=== PATIENT | male | born 1990 | race Caucasian/White ===

== ENCOUNTER 2018-04-07 20:21 | Emergency (ER) | payer OTHER, SELFPAY ==
[~2018-04-07 20:21] MED LIST: ISOVUE-370 76%-LOCM 1 ML ONE
[2018-04-07] MEDS ORDERED: Morphine 4 MG/ML VIAL ONE ×2 (20:42→22:39)
[2018-04-07] MEDS ORDERED: Ondansetron ODT 4 MG TAB ONE (20:42)
[2018-04-07 21:06] LABS: #Eosinphils 0.1 thou/uL (0.0-0.7); #Lymphocytes 1.3 thou/uL (1.20-3.40); #Monocytes 0.5 thou/uL (0.11-0.59); #Neutrophils 4.7 thou/uL (1.40-6.50); %Basophils 0.6 % (0.0-1.0); %Eosinophils 1.2 % (0.0-10.0); %Lymphocytes 19.2 % (21.0-51.0); %Monocytes 7.6 % (0.0-10.0); %Neutrophils 71.3 % (42.0-75.0); Hemoglobin 14.9 g/dL (14.0-18.0); Mean Corpuscular HGB CONC 35.9 g/dL (32.0-36.0); Mean Corpuscular Hemoglobin 32.5 pg (27.0-31.0); Mean Corpuscular Volume 90.6 fL (78.0-98.0); Mean Platelet Volume 7.6 fL (7.4-10.4); Platelet Count 186 thou/uL (130-400); RBC Distribution Width 11.7 % (11.5-14.5); Red Blood Cell (RBC) Count 4.57 mill/uL (4.70-6.10); White Blood Cell (WBC) Count 6.7 thou/uL (4.8-10.8)
[2018-04-07 21:11] LABS: Prothrombin Time 13.7 SEC (12.0-14.7)
[2018-04-07 21:16] LABS: PTT 31.8 SEC (22.9-36.1)
[2018-04-07 21:25] LABS: ALT (SGPT) 19 U/L (8-55); AST (SGOT) 16 U/L (5-34); Albumin 4.3 g/dL (3.5-5.0); Alkaline Phosphatase 53 U/L (40-150); Anion Gap 11 mmol/L (10-20); BUN (Urea Nitrogen) 10 mg/dL (8.9-20.6); Bilirubin, Total 0.9 mg/dL (0.2-1.2); CK (CPK) 127 U/L (30-200); Calc. Creatinine Clearance 0 mL/min (70-130); Calcium 8.9 mg/dL (7.8-10.44); Carbon Dioxide 27 mmol/L (22-29); Chloride 108 mmol/L (98-107); Estimated GFR-MDRD Greater than 90; Globulin 2.4 g/dL (2.4-3.5); Glucose 81 mg/dL (70-105); Magnesium 2.1 mg/dL (1.6-2.6); Potassium 3.7 mmol/L (3.5-5.1); Protein, Total 6.7 g/dL (6.0-8.3); Sodium 142 mmol/L (136-145)
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
--- NOTE | 2018-04-07 21:51 | CT ---
CT OF THE CHEST WITH CONTRAST CT OF THE ABDOMEN AND PELVIS WITH CONTRAST: Indication: 27-year-old male status post fall off bull dozer 3 ft with back pain and toe tingliness. History of epilepsy. Comparison: Noncontrast CT of the abdomen and pelvis, 09-22-15. FINDINGS: No contusion, pleural effusion, or pneumothorax is evident. Heart and great vessels appear within normal limits. No definite solid organ injury is seen within the abdomen. There is a 1 cm cyst within the left kidne y which was present in 2016, with better detail on contrast enhanced examination performed today. No free fluid or free air is evident. There are a few scattered diverticula involving the colon witho ut evidence of active diverticulitis. No acute fracture or subluxation is evident. Spinal alignment of the thoracolumbar spine appears with in normal limits. There are surgical clips within the right inguinal region. IMPRESSION: 1. No acute traumatic injury is seen involving the chest, abdomen, or pelvis. 2. No acute fracture or subluxation involving the thoracic and lumbar spine. 3. Left renal cyst. 4. Colonic diverticulosis. POS: [facility]
--- NOTE | 2018-04-07 22:00 | RAD ---
PORTABLE SUPINE CHEST: History: Fall with trauma. FINDINGS: Lungs are clear. No pneumothorax or effusion. Heart and mediastinum unremarkable. The osseous structu res appear intact. IMPRESSION: No acute process identified. POS: [facility]
--- NOTE | 2018-04-07 22:36 | CT ---
CT HEAD WITHOUT CONTRAST: Technique: Multiple contiguous axial images were obtained through the head without IV enhancement. History: Headache. Fell with injury to head and neck. Comparison: 2012 FINDINGS: Ventricles have normal size and position, somewhat small. There is no evidence of mass or hemorrhage. The basilar cisterns are effaced. Sulci also appear very tight in both cerebral hemispheres. Finding s are suggestive of increased intracranial pressure although this may be normal for this patient. Fur ther evaluation with MRI is suggested. The paranasal sinuses and mastoids are aerated. The calvarium appears unremarkable. IMPRESSION: The basilar cisterns are effaced and the sulci are also tight bilaterally with very little sulcal gretel ency identified in either cerebral hemisphere. Question increased intracranial pressure. Suggest furt her evaluation with MRI. Findings discussed with Dr. Childs. POS: [facility]
[2018-04-07 22:46] LABS: Bilirubin Negative (Negative); Blood, Urine Negative (Negative); Clarity CLEAR (Clear); Glucose, Urine (Dipstick) Negative (Negative); Leukocyte Negative (Negative); Nitrite Negative (Negative); Protein, Urine (Dipstick) Negative (Neg-Trace); Specific Gravity, Urine 1.045 (1.002-1.036); Urobilinogen 0.2 mg/dL (0.2-1.0); pH, Urine 7.5 (5.0-9.0)
[2018-04-07 22:55] LABS: Amphetamine Not Detected (NotDetected); Barbiturates Screen Not Detected (NotDetected); Benzodiazepine Screen Not Detected (NotDetected); Cocaine Metabolite Screen Not Detected (NotDetected); Medtox Control Line Valid? VALID (VALID); Medtox Reader # READER 1; Methadone Not Detected (NotDetected); Methamphetamine Not Detected (NotDetected); Opiate Screen Detected (NotDetected); Oxycodone Screen Not Detected (NotDetected); Phencyclidine (PCP) Not Detected (NotDetected); THC/Cannabinoid Screen Not Detected (NotDetected); Tricyclic Screen Not Detected (NotDetected)
[2018-04-08] MEDS ORDERED: Morphine 4 MG/ML VIAL ONE (01:55)
[2018-04-08] MEDS ORDERED: Ketorolac Tromethamine 30 MG/ML VIAL ONE (03:56)
[2018-04-08] MEDS ORDERED: HYDROmorphone 0.5 MG/0.5 ML SYRINGE ONE (04:38)
[2018-04-08] MEDS ORDERED: Ondansetron ODT 4 MG TAB ONE (04:49)
--- NOTE | 2018-04-08 09:10 | MRI ---
PRELIMINARY REPORT/[facility]/EMERGENTY AFTER-HOURS PROCEDURE MR Cervical Spine Without And With Intravenous Contrast CLINICAL HISTORY: 27 years old, male; Pain and injury or trauma; Fall; Initial encounter; Sprain or strain, cervical li gaments; Neck pain; Patient HX: Headache. Fell with injury to head and neck. TECHNIQUE: Magnetic resonance images of the cervical spine without and with intravenous contrast in multiple stephanie connor. COMPARISON: No relevant prior studies available. FINDINGS: Vertebrae: Unremarkable. No acute fracture. Spinal cord: There is increased T2 signal throughout the central mason matter cord extending from appr oximately the level of C1 down to the T3 level which may be due to contusion in the setting of trauma or myelomalacia. No abnormal enhancement. Soft tissues: There is mild increased T2 signal and enhancement throughout the soft tissues posterior to the spine, most prominently at the C5-T1 levels. No focal fluid collection Vasculature: Unremarkable. Normal vertebral artery flow voids are visualized. DISCS/SPINAL CANAL/NEURAL FORAMINA: C2-C3: Unremarkable. No significant disc disease. No stenosis. C3-C4: Unremarkable. No significant disc disease. No stenosis. C4-C5: Unremarkable. No significant disc disease. No stenosis. C5-C6: Unremarkable. No significant disc disease. No stenosis. C6-C7: Unremarkable. No significant disc disease. No stenosis. C7-T1: Unremarkable. No significant disc disease. No stenosis. IMPRESSION: Soft tissue edema posterior to the spine suspicious for ligamentous injury. Edema throughout the spinal cord, predominantly in the mason matter, from C1-T3 suspicious for myeloma lacia or contusion in the setting of trauma. Thank you for allowing us to participate in the care of your patient. Dictated and Authenticated by: Amor Grullon MD 04/08/2018 5:22 AM Central Time ([place] & [place]) FINAL REPORT MRI CERVICAL SPINE WITH AND WITHOUT CONTRAST: HISTORY: Trauma. Fall. COMPARISON: Cervical spine CT same day. FINDINGS: There is long-segment edema throughout the cervical cord from the odontoid process to the level of th e upper thoracic spine. There appears to be mild expansion of the cord. There is a long segment foc al area of T2 hyperintensity involving the entire transverse component of the cord. The paraspinal musculature is normal. Paraspinal soft tissues are normal. There is no focal abnorma l area of enhancement. IMPRESSION: Long-segment cervical and upper thoracic spinal cord enlargement with abnormal fluid signal throughou t the cord. Findings are most suspicious for a transverse myelitis versus acute disseminated encepha lomyelitis. Contusion is a possibility. There is also a small syrinx of the upper cervical cord. A malignant process such as astrocytoma is also within the differential. Cord edema from patient's Chi ara-I malformation is felt less likely. Neurology follow up recommended. POS: [facility]
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
--- NOTE | 2018-04-08 09:51 | MRI ---
PRELIMINARY REPORT/[facility]/EMERGENTY AFTER-HOURS PROCEDURE MR Lumbar Spine Without And With Intravenous Contrast CLINICAL HISTORY: 27 years old, male; Injury or trauma; Fall; Initial encounter; Sprain or strain, lumbar ligaments TECHNIQUE: Magnetic resonance images of the lumbar spine without and with intravenous contrast in multiple plane s. COMPARISON: No relevant prior studies available. FINDINGS: Vertebrae: Unremarkable. No acute fracture. Spinal cord: Unremarkable. Normal signal. No abnormal enhancement. Soft tissues: Unremarkable. DISCS/SPINAL CANAL/NEURAL FORAMINA: L1-L2: Unremarkable. No significant disc disease. No stenosis. L2-L3: Unremarkable. No significant disc disease. No stenosis. L3-L4: Unremarkable. No significant disc disease. No stenosis. L4-L5: Unremarkable. No significant disc disease. No stenosis. L5-S1: Unremarkable. No significant disc disease. No stenosis. IMPRESSION: Normal lumbar spine MRI. Thank you for allowing us to participate in the care of your patient. Dictated and Authenticated by: Amor Grullon MD 04/08/2018 5:34 AM Central Time ([place] & [place]) MR LUMBAR SPINE WITH AND WITHOUT CONTRAST: History: Fall, pain. Comparison: CT same day. FINDINGS: The findings and impression are concordant with the preliminary report. Code QA. POS: [facility]
--- NOTE | 2018-04-08 09:53 | MRI ---
PRELIMINARY REPORT/[facility]/EMERGENTY AFTER-HOURS PROCEDURE MR Thoracic Spine Without And With Intravenous Contrast CLINICAL HISTORY: 27 years old, male; Injury or trauma; Fall; Initial encounter; Sprain or strain TECHNIQUE: Magnetic resonance images of the thoracic spine without and with intravenous contrast in multiple stephanie connor. COMPARISON: No relevant prior studies available. FINDINGS: Vertebrae: Unremarkable. No acute fracture. Discs/spinal canal/neural foramina: No spinal canal stenosis. Spinal cord: Again seen is increased T2 signal within the mason matter from C1-T3. Soft tissues: Unremarkable. IMPRESSION: Myelomalacia or contusion in the cervical and upper thoracic cord as described in the C-spine MRI rep ort. Thank you for allowing us to participate in the care of your patient. Dictated and Authenticated by: Amor Grullon MD 04/08/2018 5:27 AM Central Time ([place] & [place]) MRI THORACIC SPINE WITH AND WITHOUT CONTRAST: History: Trauma, pain. Comparison: CT 04-08-18 FINDINGS: There is multi thoracic cord edema from the level of T1 to T3. There is enlargement. The cord edema i nvolves the entire cord without significant abnormal enhancement. Paraspinal musculature is normal. IMPRESSION: Findings and impression concur with preliminary report. Abnormally engorged edematous upper thoracic cord from T1-3. Differential is unchanged from cervical spine MRI. POS: [facility]
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
== END 2018-04-08 07:35 | disposition home or self-care (01) ==
LOC: ERS 20:21
DX: S20.229A Contusion of unspecified back wall of thorax, initial encounter (principal); S24.109A Unspecified injury at unspecified level of thoracic spinal cord, initial encounter; S14.109A Unspecified injury at unspecified level of cervical spinal cord, initial encounter; F17.210 Nicotine dependence, cigarettes, uncomplicated
CPT/HCPCS: 70450; 70553; 71045; 71260; 72125; 72156; 72157; 72158; 74177; 80053; 80306; 81003; 82550; 83735; 85025; 85610; 85730; 96361; 96374; 96375; 96376; G0390; J1170; J1885; J2270; Q0162

== ENCOUNTER 2018-05-25 18:27 | Emergency (ER) | payer SELFPAY | END 2018-05-25 19:02 | disposition left against medical advice (07) | LOC: ERS 18:27 | DX: Z53.21 Procedure and treatment not carried out due to patient leaving prior to being seen by health care provider (principal) ==

== ENCOUNTER 2019-05-04 11:59 | Inpatient (IN) | payer SELFPAY ==
[2019-05-04 12:36] LABS: #Eosinphils 0.1 thou/uL (0.0-0.7); #Lymphocytes 1.2 thou/uL (1.20-3.40); #Monocytes 0.4 thou/uL (0.11-0.59); #Neutrophils 3.4 thou/uL (1.40-6.50); %Basophils 0.8 % (0.0-1.0); %Eosinophils 1.6 % (0.0-10.0); %Lymphocytes 22.9 % (21.0-51.0); %Monocytes 7.4 % (0.0-10.0); %Neutrophils 67.3 % (42.0-75.0); Hemoglobin 15.3 g/dL (14.0-18.0); Mean Corpuscular HGB CONC 33.2 g/dL (32.0-36.0); Mean Corpuscular Hemoglobin 30.7 pg (27.0-31.0); Mean Corpuscular Volume 92.4 fL (78.0-98.0); Mean Platelet Volume 7.8 fL (7.4-10.4); Platelet Count 237 thou/uL (130-400); RBC Distribution Width 11.7 % (11.5-14.5); Red Blood Cell (RBC) Count 4.98 mill/uL (4.70-6.10); White Blood Cell (WBC) Count 5.1 thou/uL (4.8-10.8)
[2019-05-04 12:59] LABS: ALT (SGPT) 17 U/L (8-55); AST (SGOT) 10 U/L (5-34); Albumin 4.5 g/dL (3.5-5.0); Alkaline Phosphatase 65 U/L (40-150); Anion Gap 14 mmol/L (10-20); BUN (Urea Nitrogen) 18 mg/dL (8.9-20.6); Bilirubin, Total 0.3 mg/dL (0.2-1.2); Calc. Creatinine Clearance 0 mL/min (70-130); Calcium 9.3 mg/dL (7.8-10.44); Carbon Dioxide 22 mmol/L (22-29); Chloride 106 mmol/L (98-107); Estimated GFR-MDRD Greater than 90; Globulin 2.5 g/dL (2.4-3.5); Glucose 104 mg/dL (70-105); Potassium 4.2 mmol/L (3.5-5.1); Sodium 138 mmol/L (136-145)
[2019-05-04] MEDS ORDERED: Acetaminophen 500 MG TAB ONE (13:46)
[2019-05-04] MEDS ORDERED: diphenhydrAMINE 50 MG/ML VIAL ONE (13:46)
[2019-05-04] MEDS ORDERED: Metoclopramide HCl 10 MG/2 ML VIAL ONE (13:46)
[2019-05-04] MEDS ORDERED: Ondansetron PF 4 MG/2 ML Vial ONE (13:52)
[2019-05-04] MEDS ORDERED: Magnesium 2 GM/50 ML BAG (IN WATER) ONE (14:58)
[2019-05-04] MEDS ORDERED: methylPREDNISolone Sod Succ/PF 125 MG/2 ML VIAL ONE (14:58)
--- NOTE | 2019-05-04 15:07 | CT ---
CT HEAD WITHOUT CONTRAST: CTA HEAD WITH IV CONTRAST AND 3D POST PROCESSING: CTA NECK WITH IV CONTRAST AND 3D POST PROCESSING: HISTORY: Sudden onset headache associated with dizziness. The patient had Chiari I malformation decompression surgery on 02/18/2019. FINDINGS: No evidence of infarct, hemorrhage, midline shift, or abnormal extraaxial fluid collections is seen. The ventricular size is normal, and the basilar cisterns are patent. There are postop changes of a craniectomy. There is good flow in the vertebrobasilar and carotid artery systems on both sides, in the neck and h ead, without evidence of major branch occlusion, high-grade stenosis, or aneurysm formation. The visualized paranasal sinuses and mastoid air cells are well aerated. IMPRESSION: No CT evidence of acute intracranial process or significant abnormality in the vertebrobasilar or car otid artery systems. POS: [facility]
[2019-05-04] MEDS ORDERED: Ketamine 50 MG/ML (10ML VIAL) ONE (16:11)
[2019-05-04] MEDS ORDERED: VALPROATE SODIUM IVPB SCH (16:15)
[2019-05-04] MEDS ORDERED: SODIUM CHLORIDE 0.9% IVPB SCH (16:15)
[2019-05-04 16:52] LABS: Color Of CSF Supernatant COLORLESS (Colorless); Tube # 2; Unspun CSF Color COLORLESS (Colorless)
[2019-05-04 17:05] LABS: CSF, Glucose 64 mg/dl (40-70); CSF, Protein 72 mg/dL (15-40)
[2019-05-04 17:18] LABS: CSF Source CSF; Tube # 2
[2019-05-04 17:19] LABS: Clarity Clear (Clear); RBC Count - Manual 261 /cumm (None Seen); WBC/NonHematics Count - Manual 3 /cumm (0-5)
[2019-05-04 17:38] LABS: CSF Source CSF; Clarity Clear (Clear); RBC Count - Manual 228 /cumm (None Seen); Tube # 4; WBC/NonHematics Count - Manual 5 /cumm (0-5)
[2019-05-04] MEDS ORDERED: Morphine 4 MG/ML VIAL ONE (18:14)
[2019-05-04] MEDS ORDERED: hydrALAZINE 20 MG/ML VIAL SLOW IVP PRN (19:44)
[2019-05-04] MEDS ORDERED: Labetalol HCl 100 MG/20 ML VIAL SLOW IVP PRN (19:44)
[2019-05-04 20:11] VITALS: BMI 27.8
[2019-05-04] MEDS: Morphine 2 MG/ML SYRINGE SLOW IVP PRN (20:46)
[2019-05-04] MEDS: HYDROcodone/Acetaminophen 5/325 mg Tablet PO PRN (21:32)
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
[2019-05-04] MEDS ORDERED: Morphine 2 MG/ML SYRINGE SLOW IVP SCH (23:15)
[2019-05-05] MEDS: Morphine 2 MG/ML SYRINGE SLOW IVP PRN ×6 (02:08→22:02)
[2019-05-05] MEDS: Ondansetron PF 4 MG/2 ML Vial IVP PRN ×3 (02:08→17:45)
[2019-05-05 05:37] LABS: Cardiac Risk 3.7 (Less than 4.5)
[2019-05-05] MEDS: HYDROcodone/Acetaminophen 5/325 mg Tablet PO PRN ×2 (08:01→19:39)
--- NOTE | 2019-05-05 11:02 | MRI ---
Exam: Brain MRI without contrast HISTORY: Stroke. COMPARISON: None FINDINGS: Calvarial marrow signal intensity: Appropriate T1 signal Gradient echo sequence: No hemorrhage Brain parenchyma: No mass, mass effect or midline shift. Brain volume, age-appropriate. Cortical mason-white matter differentiation: Preserved Restricted diffusion: Central arterial flow voids are maintained. Absent restricted diffusion White matter signal intensities: T2, FLAIR white matter hyperintensities due to chronic small vessel ischemic changes Sinuses: Adequate aeration of the paranasal sinuses and mastoid air cells. IMPRESSION: 1. Absent restricted diffusion. No acute infarct. 2. Postsurgical changes compatible with a suboccipital craniotomy. Abnormal signal intensity in the u pper cervical cord, similar to a MRI from 04/08/2018. Incomplete evaluation
[2019-05-05] MEDS: Metoclopramide HCl 10 MG/2 ML VIAL IVP SCH ×3 (11:29→21:56)
[2019-05-05] MEDS: Dihydroergotamine Mesylate 1 MG/ML AMP SLOW IVP SCH ×3 (11:47→21:55)
--- NOTE | 2019-05-05 13:05 | MRI ---
Exam: MRI CERVICAL SPINE WITHOUT CONTRAST: HISTORY: Chiari surgery. Brain surgery. Right arm and leg paresthesia.. COMPARISON: 04/08/2018. FINDINGS: Appropriate T1 marrow signal intensity of the cervical vertebra. Cervical spine vertebral body heigh t is maintained. No fracture. No significant STIR hyperintensity to suggest vertebral body edema or ligamentous injury. Postsurgical changes compatible with suboccipital craniotomy. Redemonstration of T2 hyperintensity involving the cervical cord. In the interim, there appears to be cystic change along the right aspect of the cervical cord. This cystic change spans the entire aspect of the right aspect of the cervical cord down to the C7 vertebral body level. At C7, there is cystic change involving the left and right aspect of the cord. Additional cystic change is noted in the right aspect of the thoracic vertebra, incompletely evaluated. C2-C3: Broad-based disc osteophyte complex. Mild central canal stenosis. Right neural foramen is durant nt. Mild to moderate left neural foraminal narrowing. C3-C4: Broad-based disc osteophyte complex. There is contact upon the ventral cord. Stable mild centr al canal stenosis. Moderate bilateral neural foraminal narrowing. C4-C5: Broad-based disc osteophyte complex with a right paracentral component causing mass effect and deformity of the central cord. Mild central canal stenosis. Mild bilateral neural foraminal narrowing. C5-C6: Broad-based disc osteophyte complex abuts the thecal sac. Mild central canal stenosis. Mild ri ght and moderate left foraminal narrowing due to uncovertebral hypertrophy. C6-C7: No significant central canal stenosis or significant neural foraminal narrowing. C7-T1: No significant central canal stenosis or significant neural foraminal narrowing. IMPRESSION: 1. Stable degenerative changes of the cervical spine. 2. Stable suboccipital craniotomy change. 3. Extensive T2 hyperintensities throughout the visualized cervical and thoracic cord suggesting cyst ic change. 4. Postcontrast imaging of the cervical spine as well as pre and postcontrast imaging of the thoracic spine is recommended. Findings conveyed to Sarah Cardenas via [employer] 05/05/2019 at 1:04 PM Code CR Transcribed Date/Time: 05/05/2019 1:12 PM
--- NOTE | 2019-05-05 17:29 | PDOC.HOSPP ---
- Subjective Encounter Date: 05/05/19 Encounter Time: 17:27 Subjective: Patient lying in bed, he reports headache improved with migraine cocktail today , awaiting MRI w/wo contrast cervical and thoracic spine. His numbness and tingling also improved. - Objective Vital Signs & Weight: Vital Signs (12 hours) Temp Pulse Resp BP Pulse Ox 05/05/19 07:33 98.3 F 86 20 138/79 94 L Weight Admit Weight 199 lb 11.2 oz Weight 199 lb 11.2 oz I&O: 05/04/19 05/05/19 05/06/19 06:59 06:59 06:59 Intake Total 350 Balance 350 Result Diagrams: 05/04/19 12:27 05/04/19 12:27 Radiology Reviewed by me: Yes ROS - Review of Systems Constitutional: denies: fever, chills Eyes: denies: vision change ENT: denies: ear pain, nose congestion Respiratory: denies: cough, dry, shortness of breath Cardiovascular: denies: chest pain, palpitations Gastrointestinal: reports: nausea. denies: vomitting, abdominal pain Musculoskeletal: reports: arm pain Skin: denies: rash, lesions Neurological: reports: numbness. denies: weakness, change in speech All other systems reviewed; all pertinent +/- noted in HPI/Subj - Medication Medications: Active Medications Generic Name Dose Route Start Last Admin Trade Name Freq PRN Reason Stop Dose Admin Hydrocodone Bitart/Acetaminophen 1 tab 05/04/19 19:44 05/05/19 08:01 [place] 5/325 PO 1 tab Q4H PRN Administration Moderate Pain (4-6) Dihydroergotamine Mesylate 0.5 mg 05/05/19 10:00 05/05/19 15:55 D.H.E. 45 SLOW IVP 0.5 mg Q6H HOSSEIN Administration Hydralazine HCl 10 mg 05/04/19 19:44 05/04/19 21:33 Apresoline SLOW IVP 10 mg Q4H PRN Administration SBP > 180 and HR < 70 Metoclopramide HCl 10 mg 05/05/19 10:00 05/05/19 15:55 Reglan IVP 10 mg Q6H HOSSEIN Administration Morphine Sulfate 2 mg 05/04/19 20:13 05/05/19 13:58 Morphine SLOW IVP 2 mg Q4H PRN Administration Severe Pain (7-10) Ondansetron HCl 4 mg 05/04/19 19:44 05/05/19 09:58 Zofran IVP 4 mg Q6H PRN Administration Nausea/Vomiting - Exam NAD, awake alert Eye: PERRL ENT: normocephalic atraumatic, moist mucosa Neck: supple, no JVD Heart: RRR, no murmur Respiratory: CTAB, no wheezes Gastrointestinal: soft, non-tender, normal bowel sounds Extremities: no cyanosis, no edema Skin: normal turgor, no lesions Neurological: CN's grossly intact, normal sensation to touch Musculoskeletal: normal tone, no muscle wasting Psychiatric: normal affect, A&O x 3 Hosp A/P (1) Intractable headache Code(s): R51 - HEADACHE Status: Acute (2) Migraine Code(s): G43.909 - MIGRAINE, UNSP, NOT INTRACTABLE, WITHOUT STATUS MIGRAINOSUS Status: Acute (3) Arnold-Chiari malformation, type II Code(s): Q07.01 - ARNOLD-CHIARI SYNDROME WITH SPINA BIFIDA Status: Acute - Plan old records reviewed/req Continue migraine treatment per Neurology, appreciate recommendations Await MRI w/wo contrast Continue to monitor and continue supportive care at this time
[2019-05-05] MEDS: Ketorolac Tromethamine 30 MG/ML VIAL IVP PRN (17:44)
--- NOTE | 2019-05-05 23:56 | CON ---
DATE OF CONSULTATION: 05/05/2019 CONSULTING PHYSICIAN: Neurosurgical Service. IMPRESSION: 1. Probable migraine. 2. Recent suboccipital decompression for Chiari malformation. 3. Cervical cord syrinx with residual numbness. PLAN: 1. We will continue the Deniz protocol in conjunction with Toradol to try to break the pain cycle. 2. Neurosurgical followup of the syrinx. HISTORY OF PRESENT ILLNESS: Mr. Cancino is a 29-year-old man, who is operated on by Dr. Ibrahim recently. He developed a severe frontal headache, which is throbbing and associated with nausea, vomiting, light and sound sensitivity. Never had any headaches like this in the past. He denies any suboccipital pain. He was given a dose of DHE and Reglan and has had an improvement in the pain level down to a 5/10. He was getting morphine prior to this, which was not effective. PAST MEDICAL HISTORY: As noted above. ALLERGIES: NONE. SOCIAL HISTORY: Unremarkable. FAMILY HISTORY: Unremarkable. REVIEW OF SYSTEMS: A 10-system review of systems is otherwise negative. PHYSICAL EXAMINATION: VITAL SIGNS: Stable. He is afebrile HEENT: Pupils are equal and reactive. Conjunctivae are clear. Oropharynx clear. NECK: Supple. EXTREMITIES: No cyanosis. NEUROLOGIC: He is alert and appropriate. Speech is fluent and clear. He has no focal motor deficits. Reports some diminished sensation in the right arm to touch. No abnormal movements were seen. IMAGING DATA: Lumbar puncture was unremarkable. SUMMARY: A 29-year-old man with fairly intense headache, which appears to be migrainous in origin. He has some ongoing sensory loss, which I suspect is related to the syrinx. I will be happy to follow up in his care for managing his headaches. Job ID: [id number]
[2019-05-06] MEDS: Morphine 2 MG/ML SYRINGE SLOW IVP PRN ×5 (04:32→23:13)
[2019-05-06] MEDS: Metoclopramide HCl 10 MG/2 ML VIAL IVP SCH (04:33)
[2019-05-06] MEDS: Dihydroergotamine Mesylate 1 MG/ML AMP SLOW IVP SCH (04:34)
[2019-05-06] MEDS: Ondansetron PF 4 MG/2 ML Vial IVP PRN ×2 (08:47→17:43)
--- NOTE | 2019-05-06 10:03 | PDOC.HOSPP ---
- Subjective Encounter Date: 05/06/19 Encounter Time: 10:01 Subjective: Headache persists, though less intense today compared to yesterday (6/10 presently, was 8/10 yesterday.) Thoracic imaging not yet done. No nausea or vomiting. Feels interventions for ENRIQUEZ as prescribed by Dr. Howard are helping. Numbness right hand/leg unchanged from admission. - Objective Vital Signs & Weight: Vital Signs (12 hours) Temp Pulse Resp BP Pulse Ox 05/06/19 07:43 97.9 F 83 16 117/86 16 L 05/06/19 04:00 98.0 F 77 18 113/79 95 Weight Admit Weight 199 lb 11.2 oz Weight 199 lb 11.2 oz I&O: 05/05/19 05/06/19 05/07/19 06:59 06:59 06:59 Intake Total 350 Balance 350 Result Diagrams: 05/04/19 12:27 05/04/19 12:27 ROS - Medication Medications: Active Medications Generic Name Dose Route Start Last Admin Trade Name Freq PRN Reason Stop Dose Admin Hydrocodone Bitart/Acetaminophen 1 tab 05/04/19 19:44 05/05/19 19:39 [place] 5/325 PO 1 tab Q4H PRN Administration Moderate Pain (4-6) Hydralazine HCl 10 mg 05/04/19 19:44 05/04/19 21:33 Apresoline SLOW IVP 10 mg Q4H PRN Administration SBP > 180 and HR < 70 Ketorolac Tromethamine 30 mg 05/05/19 17:21 05/05/19 17:44 Toradol IVP 05/10/19 17:22 30 mg Q6H PRN Administration Pain Morphine Sulfate 2 mg 05/04/19 20:13 05/06/19 08:47 Morphine SLOW IVP 2 mg Q4H PRN Administration Severe Pain (7-10) Ondansetron HCl 4 mg 05/04/19 19:44 05/06/19 08:47 Zofran IVP 4 mg Q6H PRN Administration Nausea/Vomiting Sodium Chloride 10 ml 05/04/19 19:41 05/05/19 22:03 Flush - Normal Saline IVF 10 ml PRN PRN Administration Saline Flush - Exam awake alert Eye: PERRL ENT: moist mucosa Neck: supple, no lymphadenopathy Heart: RRR Respiratory: CTAB Gastrointestinal: soft, non-tender Extremities: no edema Neurological - other findings: Numbness right hand/leg/foot; 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 Correlates clinically with reported numbess/tingling. NS consult pending, appreciated. Appreciate Dr. Howard's evaluation/treatment suspected migraine d/o. General trend toward improvement, not yet ready for discharge pending above.
--- NOTE | 2019-05-06 13:44 | MRI ---
Exam: MRI thoracic spine with and without contrast COMPARISON: 04/08/2018 HISTORY: Increased abnormal signal intensity in the visualized spinal cord Patient status post surgery for Chiari repair. FINDINGS: Appropriate T1 marrow signal intensity of the thoracic vertebra. Vertebral body height is maintained. No fracture. No significant STIR hyperintensity to suggest vertebral body edema or ligamentous injury. Visualized mediastinum, lung parenchyma, solid organs and paraspinal muscles/soft tissues of appropri ate signal intensity There is diffuse T2 hyperintensity with what appears to be cystic change throughout the upper to mid thoracic cord, down to the T9 level. There is no cord expansion. No cord malacia. Postcontrast images do not demonstrate any cord enhancement. The extent of T2 hyperintensity in the thoracic cord has increased since the previous examination. Throughout the thoracic spine, there is no significant central canal stenosis or significant neural f oraminal narrowing. IMPRESSION: Worsening T2 signal intensity involving the upper and mid thoracic cord. There appears to be cystic change, without evidence of associated enhancement, cord expansion or cord malacia. Cystic changes from cord insult is suspected. Transcribed Date/Time: 05/06/2019 2:04 PM
[2019-05-06] MEDS: Ketorolac Tromethamine 30 MG/ML VIAL IVP PRN (17:42)
[2019-05-07] MEDS: Ketorolac Tromethamine 30 MG/ML VIAL IVP PRN ×2 (03:21→13:01)
[2019-05-07] MEDS: Morphine 2 MG/ML SYRINGE SLOW IVP PRN ×3 (08:52→22:00)
[2019-05-07] MEDS: Ondansetron PF 4 MG/2 ML Vial IVP PRN (08:52)
--- NOTE | 2019-05-07 16:08 | PDOC.HOSPP ---
- Subjective Encounter Date: 05/07/19 Encounter Time: 13:50 Subjective: Headache 4/6 today; worse with lights, no change with position. Anxious to make sure all went well with his surgery. No change in numbness/sensory disturbance right side of face/arm/hand/leg. No nausea or vomiting. - Objective Vital Signs & Weight: Vital Signs (12 hours) Temp Pulse Resp BP Pulse Ox 05/07/19 07:50 98.6 F 73 16 130/87 97 Weight Admit Weight 199 lb 11.2 oz Weight 199 lb 11.2 oz Result Diagrams: 05/04/19 12:27 05/04/19 12:27 ROS - Medication Medications: Active Medications Generic Name Dose Route Start Last Admin Trade Name Freq PRN Reason Stop Dose Admin Hydrocodone Bitart/Acetaminophen 1 tab 05/04/19 19:44 05/05/19 19:39 [place] 5/325 PO 1 tab Q4H PRN Administration Moderate Pain (4-6) Divalproex Sodium 1,000 mg 05/06/19 21:00 05/06/19 20:19 Depakote Er PO 1,000 mg HS HOSSEIN Administration Hydralazine HCl 10 mg 05/04/19 19:44 05/04/19 21:33 Apresoline SLOW IVP 10 mg Q4H PRN Administration SBP > 180 and HR < 70 Ketorolac Tromethamine 30 mg 05/05/19 17:21 05/07/19 13:01 Toradol IVP 05/10/19 17:22 30 mg Q6H PRN Administration Pain Morphine Sulfate 2 mg 05/04/19 20:13 05/07/19 13:02 Morphine SLOW IVP 2 mg Q4H PRN Administration Severe Pain (7-10) Ondansetron HCl 4 mg 05/04/19 19:44 05/07/19 08:52 Zofran IVP 4 mg Q6H PRN Administration Nausea/Vomiting Sodium Chloride 10 ml 05/04/19 19:41 05/05/19 22:03 Flush - Normal Saline IVF 10 ml PRN PRN Administration Saline Flush - Exam NAD General - other findings: more awake todya Eye: PERRL ENT: moist mucosa Neck: supple Heart: RRR Respiratory: CTAB Gastrointestinal: soft, non-tender Extremities: no edema Neurological: no focal deficits Musculoskeletal - other findings: numbness right face/hand/leg Psychiatric: A&O x 3 Hosp A/P (1) Arnold-Chiari malformation Code(s): Q07.00 - ARNOLD-CHIARI SYNDROME WITHOUT SPINA BIFIDA OR HYDROCEPHALUS Status: Acute (2) Syrinx of spinal cord Code(s): G95.0 - SYRINGOMYELIA AND SYRINGOBULBIA Status: Acute (3) Migraine Code(s): G43.909 - MIGRAINE, UNSP, NOT INTRACTABLE, WITHOUT STATUS MIGRAINOSUS Status: Acute - Plan Neuro - s/p recent decompression Chiari malformation February 2019; imaging noting cystic change diffusely cervical/thoracic cord; NS consult pending, spoke with office and Mr. Yash LISA, care much appreciated. Appreciate Dr. Howard's evaluation/treatment suspected migraine d/o. General trend toward improvement
[2019-05-07] MEDS: HYDROcodone/Acetaminophen 5/325 mg Tablet PO PRN (20:12)
[2019-05-08] MEDS: Ketorolac Tromethamine 30 MG/ML VIAL IVP PRN (00:48)
[2019-05-08] MEDS: Morphine 2 MG/ML SYRINGE SLOW IVP PRN (04:09)
--- NOTE | 2019-05-08 08:34 | CON ---
DATE OF CONSULTATION: 05/07/2019 TIME OF ENCOUNTER: 1630 hours. Mr. Cancino is roughly 2-1/2 months out from Chiari decompression with Dr. Ibrahim in our practice. He was admitted three days ago for intractable headache, which sounds migrainous and has been diagnosed as such by Dr. Howard. He does have some right upper extremity numbness, which he has feels like his new; however, looking at notes and talking to Winnie regarding his history, this actually appears to be a chronic situation. MRIs were repeated of his cervical spine and brain, which again re-demonstrate large caliber syrinx in the cervical spine, which was present prior to surgery. I think from a neurologic standpoint, he is safe to be discharged and we will arrange for outpatient followup with Winnie Epps, and Dr. Ibrahim in our clinic. Job ID: [id number]
[2019-05-08 11:52] VITALS: BP 154/98; TEMP 97.6
--- NOTE | 2019-05-08 12:09 | DIS ---
DATE OF ADMISSION: 05/04/2019 DATE OF DISCHARGE: 05/08/2019 PRIMARY CARE PHYSICIAN: None. NEUROSURGEON: Jair Ibrahim MD. CHIEF COMPLAINT: Headache. PRINCIPAL DIAGNOSIS ON ADMISSION: Intractable headache. DISCHARGE DIAGNOSES: 1. Cephalgia, likely secondary to migraine headache disorder. 2. Type 2 Chiari malformation, status post decompression by Dr. Ibrahim on February 18, 2019. 3. Nausea, in association with migrainous headache, improved. CONSULTS DURING HOSPITAL STAY: 1. Neurology, Sp Howard MD. 2. Neurosurgery, Jair Berrios PA-C covering for Dr. Ibrahim/Neurosurgical Team. HOSPITAL COURSE: Mr. Cancino is a 29-year-old gentleman with a history of Arnold-Chiari malformation, status post decompression surgery with Dr. Ibrahim on February 18, presented to the hospital with complaints of intractable headache. Additionally reported right facial/right arm/right leg numbness/tingling. Per Neurosurgical Team, symptoms preceded surgical intervention, and have been followed. The patient felt these symptoms had progressed over the last 2 weeks. CTA head on admission showed no evidence of an acute intracranial process or significant abnormality in vertebral, bibasilar, or coronal artery systems. Postop changes of craniotomy noted. Brain CT unremarkable. From the ED, Jair Berrios PA-C, Neurosurgery consult recommending spinal tap. This is performed, revealing elevated red blood cell count secondary to traumatic tap and mildly elevated CSF protein. He was admitted to the hospital, seen by Neurosurgery as well, and treated with symptomatic medications for working diagnosis of migraine. Through the course of his hospital stay, he underwent additional neuroimaging, including thoracic spine MRI/cervical spine MRI/brain MRI. These studies showed postsurgical changes, abnormal signal intensity of upper cervical cord similar to MRI from 04/08/2018. Cervical spinal MRI demonstrated stable degenerative changes of cervical spine, suboccipital craniotomy change, T2 hyperintensity throughout visualized cervical and thoracic cord suggestive of cystic change, as well as post-contrast cystic change. Thoracic spine MRI noted worsening T2 signal intensity involving upper and mid thoracic cord, appearing to be cystic change without evidence of associated enhancement, cord expansion, or cord malacia. Cystic change in cord insult suspected. Case discussed with Neurosurgical Team yesterday, 05/07/2019, consultation note appreciated. Recommendation for expectant management with close outpatient followup, the patient is scheduled for appointment on 05/30 with Neurosurgical Team. Symptomatically, headache has generalized trend toward improvement, the patient will be discharged with hydrocodone and Zofran as needed. In the hospital, he has been treated with Toradol/morphine on a rotating basis. PHYSICAL EXAMINATION: NEUROLOGIC: On exam, numbness/tingling, right face, right hand, right leg, with decreased fisher seal strength, right upper extremity present. The patient reports this has been unchanged over the last few weeks. No interval progression during hospital stay. LUNGS: Clear to auscultation bilaterally. ABDOMEN: Soft and nontender. EXTREMITIES: Without edema. MEDICATIONS AT DISCHARGE: 1. Zofran 4 mg p.o. q.4 hours hourly p.r.n. nausea. 2. [place] 5/325 one to two p.o. q.6 hours p.r.n. pain. DIET: Regular as tolerated. FOLLOWUP: Follow up on 05/30/2019, neurosurgical office, sooner should symptoms persist/worsen. Additionally, Dr. Howard is available as an outpatient should migrainous symptoms return/worsen and chronic prophylactic medication ultimately required for management. TIME SPENT: Time spent on discharge/discharge planning and coordination of care, 45 minutes. Job ID: [id number]
--- NOTE | 2019-05-10 15:19 | EKG ---
Test Reason : WEAKNESS Blood Pressure : / mmHG Vent. Rate : 078 BPM Atrial Rate : 078 BPM P-R Int : 122 ms QRS Dur : 102 ms QT Int : 386 ms P-R-T Axes : 035 027 016 degrees QTc Int : 440 ms Normal sinus rhythm Normal ECG Confirmed by HECTOR ORELLANA DO ([id number]), editorial clerk ROSETTE AREVALO ([id number]) on 05/10/2019 3:19:17 PM Referred By: Confirmed By:HECTOR ORELLANA DO
== END 2019-05-08 12:03 | disposition home or self-care (01) | DRG 103 ==
LOC: ERS 11:59 → T4-A 16:46 → OBSVTOIN 16:46
PROVIDERS: ADMIT Internal Medicine; ATTEND Internal Medicine
DX: G43.919 Migraine, unspecified, intractable, without status migrainosus (principal); G95.0 Syringomyelia and syringobulbia; Z90.49 Acquired absence of other specified parts of digestive tract; Z87.891 Personal history of nicotine dependence; Q07.01 Arnold-Chiari syndrome with spina bifida
CPT/HCPCS: 36415; 62270; 70496; 70498; 70551; 72141; 72142; 72157; 80053; 80061; 82945; 84157; 84484; 85025; 87070; 87205; 89051; 93005; 96365; 96367; 96368; 96375; J0360; J1110; J1200; J1885; J2270; J2405; J2765; J2930; J3475; J3490; Q9966

== ENCOUNTER 2019-05-08 15:59 | Emergency (ER) | payer SELFPAY ==
--- NOTE | 2019-05-10 15:23 | EKG ---
Test Reason : Blood Pressure : / mmHG Vent. Rate : 095 BPM Atrial Rate : 095 BPM P-R Int : 132 ms QRS Dur : 098 ms QT Int : 356 ms P-R-T Axes : 036 026 012 degrees QTc Int : 447 ms Normal sinus rhythm Possible Left atrial enlargement Borderline ECG Confirmed by HECTOR ORELLANA DO ([id number]), assignment desk editor ROSETTE AREVALO ([id number]) on 05/10/2019 3:23:27 PM Referred By: Confirmed By:HECTOR ORELLANA DO
== END 2019-05-08 16:28 | disposition left against medical advice (07) ==
LOC: ERS 15:59
DX: Z53.21 Procedure and treatment not carried out due to patient leaving prior to being seen by health care provider (principal)
CPT/HCPCS: 93005

== ENCOUNTER 2019-09-25 22:57 | Emergency (ER) | payer SELFPAY ==
[2019-09-25] MEDS ORDERED: diphenhydrAMINE 50 MG/ML VIAL ONE (23:44)
[2019-09-25] MEDS ORDERED: Metoclopramide HCl 10 MG/2 ML VIAL ONE (23:44)
[2019-09-25] MEDS ORDERED: Ketorolac Tromethamine 30 MG/ML VIAL ONE (23:44)
== END 2019-09-26 04:39 | disposition home or self-care (01) ==
LOC: ERS 22:57
DX: R51 Headache (principal); F17.210 Nicotine dependence, cigarettes, uncomplicated
CPT/HCPCS: 96365; 96366; 96375; J1200; J1885; J2765

== ENCOUNTER 2021-03-16 08:44 | Emergency (ER) | payer SELFPAY ==
[2021-03-16] MEDS ORDERED: Fluorescein Opthalmic Strip ONE (10:03)
[2021-03-16] MEDS ORDERED: Proparacaine 0.5% Opth 15 ML BOT ONE (10:03)
== END 2021-03-16 10:32 | disposition home or self-care (01) ==
LOC: ERS 08:44
DX: H53.8 Other visual disturbances (principal); Z79.899 Other long term (current) drug therapy; G40.909 Epilepsy, unspecified, not intractable, without status epilepticus; G43.909 Migraine, unspecified, not intractable, without status migrainosus; F17.210 Nicotine dependence, cigarettes, uncomplicated
CPT/HCPCS: 99283

== ENCOUNTER 2021-10-06 11:04 | Emergency (ER) | payer SELFPAY ==
[2021-10-06] MEDS ORDERED: Ketorolac Tromethamine 30 MG/ML VIAL ONE (12:53)
== END 2021-10-06 13:19 | disposition home or self-care (01) ==
LOC: ERS 11:04
DX: M54.50 Low back pain, unspecified (principal); G43.909 Migraine, unspecified, not intractable, without status migrainosus
CPT/HCPCS: 96372; 99283; J1885

== ENCOUNTER 2024-09-19 12:39 | Emergency (ER) | payer SELFPAY ==
[2024-09-19 13:34] LABS: #Basophils 0.05 10x3/uL (0.0-0.2); %Basophils 1.1 % (0.0-1.0); %Eosinophils 0.9 % (0.0-10.0); %Lymphocytes 27.6 % (21.0-51.0); %Monocytes 7.7 % (0.0-10.0); %Neutrophils 62.5 % (42.0-75.0); Hematocrit 41.4 % (42.0-52.0); Hemoglobin 14.5 g/dL (14.0-18.0); Mean Corpuscular Hemoglobin 30.9 pg (27.0-31.0); Mean Corpuscular Volume 88.1 fL (78.0-98.0); Mean Platelet Volume 10.1 fL (7.4-10.4); Platelet Count 240 10x3/uL (130-400); RBC Distribution Width 12.1 % (11.5-14.5)
[2024-09-19 13:58] LABS: Troponin I Less than 0.010 ng/mL (< 0.028)
[2024-09-19 14:01] LABS: ALT (SGPT) 16 U/L (8-55); AST (SGOT) 15 U/L (5-34); Albumin 4.7 g/dL (3.5-5.0); Alkaline Phosphatase 62 U/L (40-110); Anion Gap 15 mmol/L (10-20); BUN (Urea Nitrogen) 16 mg/dL (8.9-20.6); Bilirubin, Total 0.9 mg/dL (0.2-1.2); Calc. Creatinine Clearance 0 mL/min (70-130); Calcium 9.5 mg/dL (7.8-10.44); Carbon Dioxide 21 mmol/L (22-29); Chloride 107 mmol/L (98-107); Estimated GFR 120; Globulin 3.4 g/dL (2.4-3.5); Glucose 99 mg/dL (70-105); Potassium 3.9 mmol/L (3.5-5.1); Protein, Total 8.1 g/dL (6.0-8.3); Sodium 139 mmol/L (136-145)
[2024-09-19] MEDS ORDERED: Metoclopramide HCl 10 MG (2 mL) VIAL ONE (15:45)
[2024-09-19] MEDS ORDERED: Ketorolac Tromethamine 30 MG (1 mL) VIAL ONE ×2 (15:45→15:46)
[2024-09-19] MEDS ORDERED: Lorazepam 2 MG/ML VIAL ONE (15:45)
[2024-09-19] MEDS ORDERED: Meclizine HCl 25 MG TAB ONE (15:45)
[2024-09-19] MEDS ORDERED: Dexamethasone 10 MG/ML VIAL ONE (15:45)
[2024-09-19] MEDS ORDERED: fentaNYL 50 mcg/mL 1 mL Vial ONE (15:46)
== END 2024-09-19 17:01 | disposition home or self-care (01) ==
LOC: ERS 12:39
DX: R42 Dizziness and giddiness (principal); R51.9 Headache, unspecified; R29.700 NIHSS score 0; F17.290 Nicotine dependence, other tobacco product, uncomplicated
CPT/HCPCS: 36415; 70450; 71046; 80053; 82550; 84484; 85025; 87428; 93005; 96361; 96374; 96375; J1100; J1885; J2060; J2765; J3010